=== PATIENT | female | born 1980 | race Caucasian/White ===

== ENCOUNTER 2017-04-12 21:43 | Emergency (ER) | payer MEDICAID ==
[~2017-04-12] VITALS: Ht 154.9 cm; Wt 79.2 kg
[~2017-04-12 21:43] MED LIST: PNV1TABL43 PO
[2017-04-12 21:45] VITALS: Ht 154.9 cm; Wt 79.2 kg
[2017-04-12] MEDS ORDERED: ONDANSETRON 4 MG INJ IV STA (23:47)
[2017-04-12] MEDS ORDERED: KETOROLAC 15 MG INJ IV STA (23:47)
--- NOTE | 2017-04-12 23:47 | ERD ---
ER Documentation Chief Complaint Chief Complaint epigastric pain x 4 hours HPI 36 yr femal presents to ED for evaluation of epigastric pain radiating to pack, chest pain and SOB . denies dizziness, palpations or CV HX. pt reports N/V and diarrhea ROS All systems reviewed and are negative except as per history of present illness. Medications Home Meds Active Scripts Hydrocodone/Acetaminophen ([place] 5-325 Tablet) 1 Each Tablet, 1 TAB PO Q6H Y for PAIN, #7 TAB Prov:ALDEN,GRACE 04/13/17 Ibuprofen* (Motrin*) 400 Mg Tab, 400 MG PO Q6, #30 TAB Prov:ALDEN,GRACE 04/13/17 Pantoprazole* (Protonix*) 40 Mg Tablet.dr, 40 MG PO DAILY, #20 TAB Prov:ALDEN,GRACE 04/13/17 Reported Medications Vit/Fe Fumarate/Fa* ( Vitamin Tablet*) 1 Tab Tablet, 1 TAB PO DAILY, TAB 10/14/14 Allergies Allergies: Coded Allergies: No Known Allergy (Unverified , 04/12/17) PMhx/Soc Medical and Surgical Hx: pt denies Medical Hx, pt denies Surgical Hx Hx Alcohol Use: No Hx Substance Use: No Hx Tobacco Use: No Smoking Status: Never smoker Physical Exam Vitals Vital Signs Date Time Temp Pulse Resp B/P Pulse Ox O2 Delivery O2 Flow Rate FiO2 04/12/17 21:45 97.8 70 20 134/81 98 Physical Exam Const: Well-nourished well-appearing 36-year-old female obvious discomfort no acute distress Head: Eyes: ENT: Normal External Ears, Nose and Mouth. Neck: Resp: Cardio: Abd: Abdomen symmetric, tender to palpation on the right upper quadrant, epigastric, and left upper quadrant. No CVA tenderness, no right lower quadrant tenderness Skin: Back: No midline or flank tenderness Ext: Neur: Awake and alert Psych: Normal Mood and Affect Result Diagram: 04/12/17 0010 04/12/17 0010 Results 24 hrs Laboratory Tests Test 04/12/17 00:10 04/12/17 23:57 White Blood Count 9.810^3/ul Red Blood Count 4.7710^6/ul Hemoglobin 14.1g/dl Hematocrit 42.2% Mean Corpuscular Volume 88.5fl Mean Corpuscular Hemoglobin 29.6pg Mean Corpuscular Hemoglobin Concent 33.4g/dl Red Cell Distribution Width 12.5% Platelet Count 97319^3/UL Mean Platelet Volume 12.4fl Neutrophils % 76.3% Lymphocytes % 18.0% Monocytes % 4.4% Eosinophils % 0.6% Basophils % 0.4% Nucleated Red Blood Cells % 0.0/100WBC Neutrophils # 7.510^3/ul Lymphocytes # 1.810^3/ul Monocytes # 0.410^3/ul Eosinophils # 0.110^3/ul Basophils # 0.010^3/ul Nucleated Red Blood Cells # 0.010^3/ul Sodium Level 142mmol/L Potassium Level 3.7mmol/L Chloride Level 105mmol/L Carbon Dioxide Level 26mmol/L Anion Gap 15 Blood Urea Nitrogen 12mg/dl Creatinine 0.71mg/dl Glucose Level 117mg/dl Calcium Level 9.5mg/dl Total Bilirubin 0.2mg/dl Direct Bilirubin 0.00mg/dl Indirect Bilirubin 0.2mg/dl Aspartate Amino Transf (AST/SGOT) 20IU/L Alanine Aminotransferase (ALT/SGPT) 29IU/L Alkaline Phosphatase 75IU/L Total Protein 8.0g/dl Albumin 4.5g/dl Globulin 3.50g/dl Albumin/Globulin Ratio 1.28 Lipase 174U/L Urine Color YELLOW Urine Clarity SLIGHTLY CLOUDY Urine pH 5.0 Urine Specific [place] 1.028 Urine Ketones NEGATIVEmg/dL Urine Nitrite NEGATIVEmg/dL Urine Bilirubin NEGATIVEmg/dL Urine Urobilinogen NEGATIVEmg/dL Urine Leukocyte Esterase NEGATIVELeu/ul Urine Microscopic RBC 8/HPF Urine Microscopic WBC 2/HPF Urine Squamous Epithelial Cells FEW/HPF Urine Mucus FEW/HPF Urine Hemoglobin 2+mg/dL Urine Glucose NEGATIVEmg/dL Urine Total Protein NEGATIVEmg/dl Current Medications Medications (Trade) Dose Ordered Sig/Sommer Route PRN Reason Start Time Stop Time Status Last Admin Dose Admin Ondansetron HCl (Zofran Inj) 4 mg ONCE STAT IV 04/12/17 23:47 04/12/17 23:50 DC 04/13/17 00:18 Ketorolac Tromethamine (Toradol) 15 mg ONCE STAT IV 04/12/17 23:47 04/12/17 23:50 DC 04/13/17 00:19 Miscellaneous Medication (Gi Cocktail (2)) 40 ml ONCE ONCE PO 04/13/17 00:00 04/13/17 00:01 DC 04/13/17 00:17 Pantoprazole (Protonix Iv) 40 mg ONCE ONCE IV 04/13/17 00:00 04/13/17 00:01 DC 04/13/17 00:18 Interpretation text CBC shows no evidence of hemorrhage or infection Chemistry shows no evidence of significant electrolyte abnormalities or renal insufficiency Liver function tests shows no evidence of acute biliary or hepatic dysfunction Lipase shows no evidence of acute pancreatitis Urinalysis negative for evidence of infection Procedures/MDM PROCEDURE: CT abdomen and pelvis without intravenous contrast. CLINICAL INDICATION: Pain. TECHNIQUE: CT of the abdomen/pelvis was performed utilizing axial images with reconstructions in sagittal and coronal planes. The administered radiation dose is CTDI 12.1 mGy, DLP 715 mGy-cm. One or more of the following dose reduction techniques were used: automated exposure control, adjustment of the mA and/or kV according to patient size and/or use of iterative reconstruction technique. COMPARISON: No pertinent prior examinations were submitted for comparison. FINDINGS: Visualized Chest: The visualized lung bases are clear. Abdomen: The liver, spleen, pancreas, and adrenal glands are unremarkable. Multiple stones are noted within the gallbladder. The gallbladder is distended and there is likely some gallbladder wall thickening. The kidneys are without hydronephrosis. No definite urinary calculi are seen. There is no evidence of bowel obstruction. The appendix is normal. No intra- abdominal free air is seen. There is no evidence of intra-abdominal adenopathy or free fluid. Pelvis: There is no evidence of pelvic adenopathy. The uterus and ovaries are without enlargement. The urinary bladder is unremarkable. There is no pelvic free fluid. Osseous structures: Unremarkable. IMPRESSION: Cholelithiasis with gallbladder distension and wall thickening. Findings are suspicious for cholecystitis. Ultrasound may be helpful for further evaluation. Electronically viewed and signed by .Sander Baig MD, on 04/13/2017 01:13 PROCEDURE: US Abdomen (right upper quadrant). CLINICAL INDICATION: Pain. TECHNIQUE: Multiple real-time longitudinal and transverse images of the right upper quadrant of the abdomen were acquired utilizing a curved array transducer. Images were reviewed on a high-resolution PACS workstation. COMPARISON: CT abdomen 04/13/2017 FINDINGS: The liver is normal in size and echogencity. There is no focal intrahepatic mass.. The gallbladder is not distended. There are multiple gallstones within the gallbladder.. There is no pericholecystic fluid or gallbladder wall thickening or sonographic Montano's sign. No intra or extrahepatic biliary dilatation is seen. The common bile duct measures 3.6 mm in maximal dimension. Pancreas is obscured by bowel gas. No free fluid is identified. Visualized abdominal aorta and IVC are unremarkable. The right kidney measures 9.5 cm in length. There is normal echogenicity within the right kidney. There is no perinephric fluid collection. No hydronephrosis, mass, or calculus is seen. IMPRESSION: 1. Cholelithiasis. 2. No ultrasound evidence for acute cholecystitis or biliary obstruction. 3. Pancreas is obscured by bowel gas. Electronically viewed and signed by .Evgeny Lee MD, on 04/13/2017 02:07 This 36-year-old female presents to emergency department for evaluation epigastric pain radiating to her back and chest, shortness of breath, without history of cardiovascular disease, CHF, or COPD. Emergency room course includes history and physical exam I have no suspicion for acute IA, plan to treat patient with diagnostic routine laboratory evaluation, CBC negative for evidence of hemorrhage or acute infection, CMP negative for electrolyte dysfunction or renal insufficiency. No evidence of hepatitis, urinalysis negative for evidence of urinary tract infection, patient receives 1 L of normal saline, Protonix, IV Toradol, and Zofran, patient has a CT of abdomen with radiologist's interpretation of Cholelithiasis with gallbladder distension and wall thickening. Findings are suspicious for cholecystitis. Ultrasound may be helpful for further evaluation. Gallbladder ultrasound with radiologist's findings as . Cholelithiasis. No ultrasound evidence for acute cholecystitis or biliary obstruction. Pancreas is obscured by bowel gas. To discharge patient home with acetaminophen and hydrocodone, count of 7 1 tab p.o. every 6 hours for severe pain, ibuprofen 400 mg every 6 hours as needed count of 30. Protonix 40 mg 1 tab p.o. daily, follow -up with primary care physician for treatment plan for cholelithiasis. Patient is stable with no new complaints during ER course, clinically there is no current evidence to suggest meningitis, sepsis, acute abdomen, acute coronary syndromes, pulmonary embolism or any other emergent condition appearing to require further evaluation or hospitalization. I feel the patient is stable for discharge at this time. I have discussed results, examination findings, the treatment plan with the patient and family present prior to discharge. Indications for emergent reevaluation, side effects of medication were also discussed. All questions were answered. Patient verbalizes understanding and agrees with plan of care. Departure Diagnosis: Primary Impression: Cholelithiasis Cholelithiasis location: gallbladder Cholecystitis presence: without cholecystitis Biliary obstruction: without biliary obstruction Qualified Code : K80.20 - Calculus of gallbladder without cholecystitis without obstruction Condition: Good Patient Instructions: Gallstones Referrals: [facility] Additional Instructions: Thank you for for coming to [facility] for your care today. Please ask your nurse or provider if you have questions about your care today and do not leave until all your questions have been answered. Please use any medications given as directed and follow-up with your doctor (or the doctor you were referred to) in the next 2-3 days. If you do not have a primary care doctor you may follow up at the [facility] - [place], [place] (listed below). You may also use motrin and tylenol as needed for fever and/or pain unless instructed otherwise by your provider or nurse. Indications for more urgent follow-up have been discussed, but you may return to the Emergency Department at ANY time for any worrisome or worsening symptoms. If you have abdominal pain, please know that no test or exam you received is perfect and you should follow up within 8 hours for continued pain. If you had any imaging studies today, such as an X-Ray or CT Scan, these studies will be reviewed later by a radiologist. You will be called if there are important findings that were not identified today, so make sure the contact information you provided at registration is correct. If you received any narcotic pain control medicine today, such as Vicodin, Morphine or Dilaudid, your coordination and judgment may be affected for a number of hours. Please do not drive or operate heavy machinery, and you may want someone to assist you at home. If you were given a prescription for narcotic medication, be aware that it is very addictive- use sparingly and only if necessary. GRACE RUANO Apr 12, 2017 23:47
[2017-04-13] MEDS ORDERED: PANTOPRAZOLE 40 MG INJ IV ONE
[2017-04-13] MEDS ORDERED: LIDOCAINE/MYLANTA 40 ML BTL PO ONE
--- NOTE | 2017-04-13 01:13 | RADRPT ---
PROCEDURE: CT abdomen and pelvis without intravenous contrast. CLINICAL INDICATION: Pain. TECHNIQUE: CT of the abdomen/pelvis was performed utilizing axial images with reconstructions in s agittal and coronal planes. The administered radiation dose is CTDI 12.1 mGy, DLP 715 mGy-cm. One or more of the following dose reduction techniques were used: automated exposure control, adjustment o f the mA and/or kV according to patient size and/or use of iterative reconstruction technique. COMPARISON: No pertinent prior examinations were submitted for comparison. FINDINGS: Visualized Chest: The visualized lung bases are clear. Abdomen: The liver, spleen, pancreas, and adrenal glands are unremarkable. Multiple stones are noted within the gallbladder. The gallbladder is distended and there is likely some gallbladder wall thickening. The kidneys are without hydronephrosis. No definite urinary calculi are seen. There is no evidence of bowel obstruction. The appendix is normal. No intra-abdominal free air is seen. There is no evidence of intra-abdominal adenopathy or free fluid. Pelvis: There is no evidence of pelvic adenopathy. The uterus and ovaries are without enlargement. The uri nary bladder is unremarkable. There is no pelvic free fluid. Osseous structures: Unremarkable. IMPRESSION: Cholelithiasis with gallbladder distension and wall thickening. Findings are suspicious for cholecys titis. Ultrasound may be helpful for further evaluation. RPTAT: HIKT .Sander Baig MD, Date Time Electronically viewed and signed by .Sander Baig MD, on 04/13/2017 01:13 .T/
--- NOTE | 2017-04-13 02:07 | RADRPT ---
PROCEDURE: US Abdomen (right upper quadrant). CLINICAL INDICATION: Pain. TECHNIQUE: Multiple real-time longitudinal and transverse images of the right upper quadrant of th e abdomen were acquired utilizing a curved array transducer. Images were reviewed on a high-resoluti on PACS workstation. COMPARISON: CT abdomen 04/13/2017 FINDINGS: The liver is normal in size and echogencity. There is no focal intrahepatic mass.. The gallbladder is not distended. There are multiple gallstones within the gallbladder.. There is no pericholecyst ic fluid or gallbladder wall thickening or sonographic Montano's sign. No intra or extrahepatic bilia ry dilatation is seen. The common bile duct measures 3.6 mm in maximal dimension. Pancreas is obsc ured by bowel gas. No free fluid is identified. Visualized abdominal aorta and IVC are unremarkable. The right kidney measures 9.5 cm in length. There is normal echogenicity within the right kidney. There is no perinephric fluid collection. No hydronephrosis, mass, or calculus is seen. IMPRESSION: 1. Cholelithiasis. 2. No ultrasound evidence for acute cholecystitis or biliary obstruction. 3. Pancreas is obscured by bowel gas. RPTAT: HMVK .Evgeny Lee MD, Date Time Electronically viewed and signed by .Evgeny Lee MD, on 04/13/2017 02:07 .K/
[2017-04-13] MEDS ORDERED: IBUP400T22 PO (02:19)
[2017-04-13] MEDS ORDERED: HYDR-906 PO (02:19)
[2017-04-13] MEDS ORDERED: PANT40TA3 PO (02:19)
== END 2017-04-13 02:28 | disposition home or self-care (01) ==
LOC: FTE 21:43
DX: K80.20 Calculus of gallbladder without cholecystitis without obstruction (principal)
CPT/HCPCS: 36415; 74176; 76705; 80053; 81001; 83690; 85025; 96374; 96375; C9113; J1885; J2405; Z7502; Z7610